=== PATIENT | male | born 1950 | race Caucasian/White ===

== ENCOUNTER 2021-11-06 22:39 | Observation (INO) ==
[2021-11-07] MEDS ORDERED: Acetaminophen 325 MG TABLET PO PRN (06:10)
[2021-11-07] MEDS ORDERED: Ondansetron 4 MG/2 ML VIAL IVP PRN (06:10)
[2021-11-07] MEDS ORDERED: Ketorolac 30 MG/ML VIAL IVP PRN (06:10)
[2021-11-07] MEDS ORDERED: Naloxone 0.4 MG/ML INJ IVP PRN (06:10)
[2021-11-07 08:00] LABS: Hematocrit 30.1 % (37.5-50.1); Hemoglobin 9.2 g/dL (12.9-16.9); Mean Corpuscular HGB Conc 30.6 g/dL (31.6-35.5); Mean Corpuscular Volume 91.8 fL (83.0-100.0); Mean Platelet Volume 9.3 fL (9.4-12.4); Platelet Count 226 K/mcL (140-400); Red Blood Count 3.28 M/mcL (4.19-5.50); Red Cell Distribution Width 12.5 % (11.5-14.5); White Blood Count 9.2 K/mcL (4.3-11.1)
[2021-11-07 08:14] LABS: BUN/Creatinine Ratio 29 (6-26); Blood Urea Nitrogen 29 mg/dL (8-23); Calcium 9.2 mg/dL (8.6-10.3); Carbon Dioxide 31 mEq/L (23-29); Chloride 101 mEq/L (98-107); Glucose 93 mg/dL (70-105); Osmolality,Calculated 288 (280-300); Potassium 3.8 mEq/L (3.5-5.1); Sodium 136 mEq/L (136-145); eGFR For African Americans > 60 (> 60); eGFR For Non-African Americans > 60 (> 60)
[2021-11-07] MEDS: amLODIPine 5 MG TABLET PO SCH (08:27)
[2021-11-07] MEDS: lisinopriL 20 MG TABLET PO SCH ×2 (08:27→22:02)
[2021-11-07] MEDS ORDERED: Furosemide 40 MG TABLET PO SCH (12:00)
[2021-11-07] MEDS: predniSONE 20 MG TABLET PO SCH (18:46)
[2021-11-08 00:28] VITALS: RESP 18; TEMP 98.3
[2021-11-08] MEDS ORDERED: *HR* Enoxaparin 40 MG/0.4 ML SYRINGE SQ SCH (06:00)
[2021-11-08 08:01] LABS: Hematocrit 30.1 % (37.5-50.1); Hemoglobin 9.5 g/dL (12.9-16.9); Mean Corpuscular HGB Conc 31.6 g/dL (31.6-35.5); Mean Corpuscular Hemoglobin 28.5 pg (28.0-33.3); Mean Corpuscular Volume 90.4 fL (83.0-100.0); Mean Platelet Volume 9.1 fL (9.4-12.4); Platelet Count 273 K/mcL (140-400); Red Blood Count 3.33 M/mcL (4.19-5.50); Red Cell Distribution Width 12.4 % (11.5-14.5); White Blood Count 9.9 K/mcL (4.3-11.1)
[2021-11-08 08:16] VITALS: BP 161/70; PULSE 74; O2SAT 96
[2021-11-08] MEDS: lisinopriL 20 MG TABLET PO SCH (08:18)
[2021-11-08] MEDS: amLODIPine 5 MG TABLET PO SCH (08:18)
[2021-11-08] MEDS: predniSONE 20 MG TABLET PO SCH (08:18)
[2021-11-08 08:49] LABS: BUN/Creatinine Ratio 30 (6-26); Blood Urea Nitrogen 26 mg/dL (8-23); Calcium 9.3 mg/dL (8.6-10.3); Carbon Dioxide 28 mEq/L (23-29); Chloride 107 mEq/L (98-107); Glucose 109 mg/dL (70-105); Osmolality,Calculated 297 (280-300); Potassium 4.1 mEq/L (3.5-5.1); Sodium 141 mEq/L (136-145); eGFR For African Americans > 60 (> 60); eGFR For Non-African Americans > 60 (> 60)
== END 2021-11-08 10:55 | disposition left against medical advice (07) ==
LOC: INPPIK
PROVIDERS: ADMIT Internal Medicine; ATTEND Internal Medicine